=== PATIENT | male | born 1975 | race Caucasian/White ===

== ENCOUNTER → 2023-04-27 10:22 | Outpatient (CLI) | payer OTHER, SELFPAY ==
--- NOTE | 2023-04-27 10:26 | DI.RAD.S_ITS ---
PROCEDURE: XR ANKLE LT MIN 3V INDICATIONS: Pain in left ankle and joints of left foot TECHNIQUE: 3 views of the ankle were acquired. COMPARISON: None. FINDINGS: Bones: Healed fracture of the distal fibula above the syndesmosis. Soft tissues: Moderate tibiotalar joint effusion. Achilles tendon appears normal. IMPRESSION: Healed fracture of the distal fibula. Moderate tibiotalar fusion. Dictated by: Walt Collado M.D. on 04/27/2023 at 12:04 Approved by: Walt Collado M.D. on 04/27/2023 at 12:04
--- NOTE | 2023-04-27 10:26 | DI.RAD.S_ITS ---
PROCEDURE: XR FOOT LT MIN 3V INDICATIONS: Pain in left ankle and joints of left foot TECHNIQUE: 3 views of the foot were acquired. COMPARISON: None. FINDINGS: Bones: No fractures or dislocations. No suspicious bony lesions. Periarticular osteophyte formation at the tibiotalar, talonavicular, and 1st metatarsophalangeal joints. Soft tissues: No tibiotalar joint effusion. Achilles tendon appears normal. IMPRESSION: Osteoarthritis. No acute fracture. No osseous lesion. If symptoms and/or clinical suspicion for pathology persist, further assessment with repeat, or advanced imaging (e.g., CT, MRI, or bone scan) may be helpful for further assessment. Dictated by: Chris Swanson M.D. on 04/27/2023 at 14:27 Approved by: Chris Swanson M.D. on 04/27/2023 at 14:28
== END ==
PROVIDERS: Referring Provider Podiatrist Foot & Ankle Surgery; Visit Provider Podiatrist Foot & Ankle Surgery
DX: M25.572 Pain in left ankle and joints of left foot (principal); M79.672 Pain in left foot; M19.072 Primary osteoarthritis, left ankle and foot; Z87.81 Personal history of (healed) traumatic fracture; Z98.1 Arthrodesis status
CPT/HCPCS: 73610; 73630

== ENCOUNTER → 2025-01-04 09:11 | Outpatient (CLI) | payer OTHER, SELFPAY | PROVIDERS: Visit Provider Nurse Practitioner Family | DX: R30.0 Dysuria (principal) | CPT/HCPCS: 87086 ==

== ENCOUNTER → 2025-01-24 07:15 | Outpatient (CLI) | payer BC, SELFPAY | PROVIDERS: PCP Family Medicine; Visit Provider Nurse Practitioner Family | DX: R30.0 Dysuria (principal) | CPT/HCPCS: 87086 ==

== ENCOUNTER 2025-03-12 09:11 | Day surgery (SDC) | payer BC, SELFPAY ==
--- NOTE | 2025-03-12 | PATH_ITS ---
[facility] Accession Number: [id number] No. of containers..01 Tissue . 01 Material submitted: . colon - DESCENDING POLYP . 01 Diagnosis: DESCENDING POLYP: Tubular adenoma. [facility] [[email or web address]] 03/23/2025 1131 Local . 01 Electronically signed: . Adam Reilly MD, Pathologist NPI- [id number] . 01 Gross description: . DESCENDING POLYP: Received in formalin is 1 fragment(s) of matamoros, soft tissue measuring 0.4 x 0.2 x 0.2 cm submitted entirely in 1 cassette(s) /NAGA 03/23/2025 1131 Local . 01 Pathologist provided ICD-10: D12.4 . 01 CPT . 119622 Specimen Comment: A courtesy copy of this report has been sent to [phone] Performed at: [address] [id number] MD Adam Reilly MD Phone: [phone]
[2025-03-12 09:40] VITALS: BP 149/96; PULSE 100; RESP 17; TEMP 36.2; O2SAT 98
[2025-03-12] MEDS: LACTATED RINGERS 1,000 ML 42 ML IV (09:54)
--- NOTE | 2025-03-12 10:07 | PM.HP.IH.1 ---
History of Present Illness History of Present Illness Date Patient Seen: 03/12/25 Time Patient Seen: 10:07 Chief complaint: Colonoscopy Narrative: Nikolas is a 49-year-old man who presents for a colonoscopy, his first. No family history of colon cancer. [facility] Surgical History (Updated 03/12/25 @ 09:55 by Deepa Doty RN) History of appendectomy Social History Smoking Status: Former smoker alcohol intake: never Meds Home Medications and Allergies Home Medications ?Medication ?Instructions ?Recorded ?Confirmed ?Type propranolol 20 mg tablet 20 mg PO DAILY PRN irregular heart 01/04/25 03/11/25 History rate tamsulosin 0.4 mg capsule PO 03/12/25 History Allergies Allergy/AdvReac Type Severity Reaction Status Date / Time No Known Drug Allergies Allergy Verified 03/12/25 09:32 Exam Vital Signs (past 8 hours): - 03/12/25 09:40 Temperature 97.2 F L Pulse Rate 100 H Respiratory Rate 17 Blood Pressure 149/96 H Pulse Oximetry 98 Oxygen Delivery Method Room Air Oxygen Delivery Method Room Air Const General: No acute distress Assessment & Plan Assessment and plan (1) Colon cancer screening: Status: Acute Plan Colonoscopy Time-Based Coding :: [TOTAL MINUTES] spent with patient and on the chart (including review of chart, obtaining history, exam, reviewing outside data, placing orders, documenting exam and treatment plan, and counseling patient) on [DATE]. [employer] Document charge(s): No
[2025-03-12 10:38] VITALS: BP 117/67; PULSE 86; RESP 16; TEMP 36.2; O2SAT 98
--- NOTE | 2025-03-12 10:38 | P.OP.COLON_ITS ---
Operative Date/Time/Diagnoses Date of procedure: 03/12/25 Time of procedure: 10:38 Pre-op diagnosis: Colon cancer screening Post-op diagnosis: same Procedure & Clinicians Study performed: Colonoscopy Same procedure(s) as scheduled: Yes Surgeon: Quinn Juan Anesthesia Type: MAC +/- Procedure Notes Procedure in detail: Surgeon: Quinn Juan MD Anesthesia: Zorina Cesar TELEPHONE ORDER CLERK Procedure: The patient was brought to the endoscopy suite, placed in left lateral decubitus position. The patient was connected to monitoring devices. A time-out was performed. Sedation was administered. Once the patient was adequately sedated, a digital rectal exam was performed and was normal. The scope was then inserted and advanced to the cecum where the appendiceal orifice was identified and photographed. The scope was then slowly withdrawn over greater than 6 minutes. The mucosa was thoroughly inspected. There was a 5 mm polyp in the descending colon removed with a cold snare. The scope was retroflexed in the rectum. No other abnormalities were found. The scope was straightened and removed. The patient was awakened and brought to recovery. Scope withdrawal time: 8 minutes Sedation time: 13 minutes EBL: 3 mL Findings: 5 mm descending colon Post-procedure Disposition: PACU
[2025-03-12 10:44] VITALS: BP 103/62; PULSE 91; RESP 16; TEMP 36.2; O2SAT 94
[2025-03-12 10:50] VITALS: BP 103/74; PULSE 94; RESP 16; TEMP 36.2; O2SAT 100
[2025-03-12 11:00] VITALS: BP 140/70; PULSE 68; RESP 16; TEMP 36.2; O2SAT 100
== END 2025-03-12 11:29 | disposition home or self-care (01) ==
PROVIDERS: PCP Family Medicine; Referring Provider Surgery; Visit Provider Surgery
PROC: 0DJD8ZZ Inspection of Lower Intestinal Tract, Via Natural or Artificial Opening Endoscopic (ICD-10-PCS; CPT 45378; principal; 2025-03-12 10:15)
DX: Z12.11 Encounter for screening for malignant neoplasm of colon (principal); Z87.891 Personal history of nicotine dependence; D12.4 Benign neoplasm of descending colon
CPT/HCPCS: 45385; J2704